=== PATIENT | male | born 1940 | race Caucasian/White ===

== ENCOUNTER 2022-08-19 21:04 | Emergency (ER) | payer MEDICARE ==
[2022-08-19] MEDS ORDERED: Rivaroxaban 15 MG TAB PO SCH (22:30)
[2022-08-19 23:07] LABS: INR-International Normal Ratio 1.1; PTT 29.3 sec (22.9-36.1); Prothrombin Time 14.5 sec (12.0-14.7)
[2022-08-19] MEDS ORDERED: Flecainide 50 MG TAB PO SCH (23:45)
[2022-08-19] MEDS ORDERED: Melatonin 3 MG TAB PO SCH (23:45)
[2022-08-19 23:49] LABS: D-Dimer Test Greater than 20.00 *mcg/mL (0.27-0.43)
[2022-08-20 15:08] LABS: Factor VIII Test 156.3 % ACTIVE (56-157); Protein C Activity 91 % (78-152)
[2022-08-20 15:36] LABS: HEX PHOS LA Tube 1 41.8 SEC; Hexagonal Phospholipid Neut 2.8 SEC (0-8.0)
[2022-08-24 17:13] LABS: Cardiolipin IgA Ab 1.4 APL-U/mL (<14 Negative); Cardiolipin IgM Ab 1.1 MPL-U/mL (<10 Negative); EliA APS New Method **** NEW METHOD ****
[2022-08-25 17:13] LABS: Activated Protein C Resistance 1.8 ratio (.); Factor V Mutation (Leiden) See below: (.)
== END 2022-08-19 22:35 | disposition home or self-care (01) ==
LOC: ERS 21:04
DX: I82.401 Acute embolism and thrombosis of unspecified deep veins of right lower extremity (principal)
CPT/HCPCS: 36415; 83090; 85240; 85300; 85303; 85305; 85307; 85379; 85598; 85730; 86147